=== PATIENT | female | born 1965 | race Caucasian/White ===

== ENCOUNTER 2017-02-27 14:03 | Day surgery (SDC) | payer BC ==
[~2017-02-27] VITALS: Ht 165.1 cm; Wt 67.6 kg
[2017-02-27 14:37] VITALS: BP 90/63
[2017-02-27] MEDS ORDERED: ASCO500T8 PO (14:44)
[2017-02-27] MEDS ORDERED: TAMO10TA PO (14:44)
[2017-02-27] MEDS ORDERED: MULT-6 PO (14:44)
[2017-02-27] MEDS ORDERED: CHOL10002 PO (14:44)
[2017-02-27] MEDS ORDERED: LACTATED RINGERS 1,000 ML IV SCH (14:45)
[2017-02-27] MEDS ORDERED: LIDOCAINE 1%, 2ML SQ PRN (15:00)
[2017-02-27] MEDS ORDERED: BACITRACIN 50,000 UNIT ONE (15:46)
[2017-02-27] MEDS ORDERED: MIDAZOLAM 1 MG/ML, 2ML ONE (15:58)
[2017-02-27] MEDS ORDERED: FENTANYL PF 250 MCG/5ML ONE ×2 (15:59→17:48)
[2017-02-27] MEDS ORDERED: DEXAMETHASONE 4 MG/ML, 1ML ONE (16:06)
[2017-02-27] MEDS ORDERED: ONDANSETRON 2MG/ML, 2ML ONE (16:06)
[2017-02-27] MEDS ORDERED: ROCURONIUM 10 MG/ML,10ML ONE (16:06)
[2017-02-27] MEDS ORDERED: PROPOFOL 10 MG/ML, 20ML ONE (16:06)
[2017-02-27] MEDS ORDERED: ONDANSETRON 2MG/ML, 2ML IVPush PRN (18:30)
[2017-02-27] MEDS ORDERED: ACETAMINOPHEN 325 MG TABLET PO PRN (18:30)
[2017-02-27] MEDS ORDERED: MEPERIDINE/PF 25MG/0.5ML IVPush PRN (18:30)
[2017-02-27] MEDS ORDERED: OXYcodone 5 MG/5 ML ORAL.SOL UDC ONE ×2 (18:33→18:47)
[2017-02-27] MEDS ORDERED: ACETAMINOPHEN 650 MG/20.3 ML UDC ONE (18:33)
[2017-02-27] MEDS ORDERED: FENTANYL PF 100 MCG/2ML ONE (18:33)
[2017-02-27] MEDS: FENTANYL PF 100 MCG/2ML IV PRN ×2 (18:35→18:42)
[2017-02-27] MEDS: OXYcodone 5 MG/5 ML ORAL.SOL UDC PO PRN ×2 (18:38→18:57)
[2017-02-27] MEDS ORDERED: HYDROmorphone 2 MG/ML, 1ML ONE (18:47)
[2017-02-27] MEDS: HYDROmorphone 1 MG/ML, 1ML IV PRN ×3 (18:49→19:09)
[2017-02-27] MEDS ORDERED: MEPERIDINE/PF 50 MG/ML ONE (19:32)
== END 2017-02-27 22:00 | disposition home or self-care (01) ==
LOC: OR 14:03 → EDBD 14:30 → 4NOR 20:06 → OR 22:00
PROVIDERS: ATTEND Specialist
DX: T85.44XA Capsular contracture of breast implant, initial encounter (principal); N65.1 Disproportion of reconstructed breast; N64.89 Other specified disorders of breast; Z98.890 Other specified postprocedural states; Z85.3 Personal history of malignant neoplasm of breast; Y83.8 Other surgical procedures as the cause of abnormal reaction of the patient, or of later complication, without mention of misadventure at the time of the procedure; Y92.89 Other specified places as the place of occurrence of the external cause
CPT/HCPCS: 15777; 19316; 19340; 19371; C1729; C1762; C1789; J1100; J1170; J2175; J2250; J2405; J2704; J3010; J7120